=== PATIENT | female | born 1960 | race African-American/Black ===

== ENCOUNTER → 2021-07-23 10:06 | Outpatient (BNVA) | payer OTHER, SELFPAY | PROVIDERS: PCP Internal Medicine; Visit Provider Physician Assistant Medical | DX: S83.411A Sprain of medial collateral ligament of right knee, initial encounter (principal); X50.1XXA Overexertion from prolonged static or awkward postures, initial encounter | CPT/HCPCS: 73564; 99203 ==

== ENCOUNTER → 2021-07-27 11:09 | Outpatient (BNVA) | payer OTHER, SELFPAY | PROVIDERS: PCP Internal Medicine; Visit Provider Physician Assistant | DX: S83.91XD Sprain of unspecified site of right knee, subsequent encounter (principal); X58.XXXD Exposure to other specified factors, subsequent encounter | CPT/HCPCS: 99213 ==

== ENCOUNTER → 2021-08-02 13:30 | Outpatient (BNVA) | payer OTHER, SELFPAY | PROVIDERS: PCP Internal Medicine; Visit Provider Physician Assistant | DX: S89.91XD Unspecified injury of right lower leg, subsequent encounter (principal); X58.XXXD Exposure to other specified factors, subsequent encounter | CPT/HCPCS: 99213 ==

== ENCOUNTER 2021-08-10 15:46 | Outpatient (REF) | payer OTHER, SELFPAY ==
--- NOTE | ~2021-08-10 | MR_ITS ---
EXAMINATION: MR KNEE WITHOUT CONTRAST, RIGHT CLINICAL INFORMATION: Right knee pain following twisting injury. Tenderness and laxity. COMPARISON: Right knee radiographs dated 07/23/2021. TECHNIQUE: MRI of the knee without contrast was performed using routine sequences on a high-field scanner. FINDINGS: MENISCI: Medial Meniscus: Intact. Lateral Meniscus: Intact. LIGAMENTS: Cruciate: Intact. Collateral: Intact. EXTENSOR MECHANISM: Intact. ARTICULAR CARTILAGE/BONE: Patellofemoral Compartment: Articular cartilage signal heterogeneity at the inferior aspect of the medial trochlea. Tiny marginal osteophytes. Medial Compartment: Full-thickness articular cartilage fissuring at the posterior aspect of the medial tibial tuberosity with underlying subchondral cystic change and mild marrow edema. Tiny marginal osteophytes. Lateral Compartment: Weightbearing lateral femoral condyle partial-thickness articular cartilage loss. Tiny marginal osteophytes. Minimal degenerative change at the proximal tibiofibular joint. JOINT FLUID AND BURSAE: Trace joint effusion. MR/MR knee RT wo con IMPRESSION: 1. Mild medial compartment as well as minimal lateral and patellofemoral compartment osteoarthritis. Trace joint effusion. 2. Minimal degenerative change at the proximal tibiofibular joint. 3. No acute meniscal or ligamentous injury.
== END 2021-08-10 15:47 | disposition home or self-care (01) ==
LOC: HO.MRI 15:46
PROVIDERS: Visit Provider Internal Medicine
DX: S89.81XA Other specified injuries of right lower leg, initial encounter (principal); M25.261 Flail joint, right knee; X58.XXXA Exposure to other specified factors, initial encounter; Y93.9 Activity, unspecified; Y92.9 Unspecified place or not applicable; Y99.9 Unspecified external cause status
CPT/HCPCS: 73721

== ENCOUNTER → 2021-08-16 13:16 | Outpatient (BNVA) | payer OTHER, SELFPAY | PROVIDERS: PCP Internal Medicine; Visit Provider Physician Assistant | DX: S83.91XD Sprain of unspecified site of right knee, subsequent encounter (principal); X58.XXXD Exposure to other specified factors, subsequent encounter | CPT/HCPCS: 99213 ==

== ENCOUNTER → 2021-09-05 11:04 | Outpatient (BNVA) | payer OTHER, SELFPAY | PROVIDERS: PCP Internal Medicine; Visit Provider Physician Assistant | DX: M25.561 Pain in right knee (principal) | CPT/HCPCS: 99213 ==